=== PATIENT | female | born 1990 | race Caucasian/White ===

== ENCOUNTER 2017-04-23 19:39 | Emergency (ER) | payer MEDICAID ==
[2017-04-23 20:18] VITALS: RESP 18; TEMP 99.7; O2SAT 100; BMI 30.7
[2017-04-23] MEDS ORDERED: Amoxicillin-Clav 875-125 mg Tab PO STA (20:22)
--- NOTE | 2017-04-23 20:28 | ED PDOC ---
Arrival/HPI <Nathan Chirinos - Last Filed: 04/23/17 21:40> <Casa Gregg - Last Filed: 04/23/17 22:19> - General Chief Complaint: ENT Problem Time Seen by Provider: 04/23/17 19:58 - History of Present Illness Narrative History of Present Illness (Text): 04/23/17 20:25 26yo F w/ a PMhx of GERD is coming to the hospital with a 3d history of sore throat, trouble swallowing food, and body aches. States she frequently gets swollen tonsils and this feels just like that. Admits to a fever at home which she took motrin for, which helped her fever come down. Denies all other symptoms ; KRISHNAN, CP, SOB, abdominal pain, N/V/D, dysuria/freq/urg, or lower extremity pain/ swelling, other sick contacts, recent travel. (Nathan Chirinos) Past Medical History - Provider Review Nursing Documentation Reviewed: Yes - Travel History Have you recently traveled outside [place] w/in the past 3 mons?: No - Infectious Disease Hx of Infectious Diseases: None - Tetanus Immunization Tetanus Immunization: Unknown - Neurological Hx Migraine: Yes - Gastrointestinal Hx Gastroesophageal Reflux: Yes - Psychiatric Hx Substance Use: No - Past Surgical History Past Surgical History: No Previous - Surgical History Other/Comment: oral surgery - Anesthesia Hx Anesthesia: Yes Hx Anesthesia Reactions: No Hx Malignant Hyperthermia: No - Suicidal Assessment Feels Threatened In Home Enviroment: No <Nathan Chirinos - Last Filed: 04/23/17 21:40> Family/Social History - Physician Review Nursing Documentation Reviewed: Yes Family/Social History: No Known Family HX Smoking Status: Never Smoked Hx Alcohol Use: Yes Frequency of alcohol use: Socially Hx Substance Use: No Hx Substance Use Treatment: No <Nathan Chirinos - Last Filed: 04/23/17 21:40> Allergies/Home Meds <Nathan Chirinos - Last Filed: 04/23/17 21:40> <Casa Gregg - Last Filed: 04/23/17 22:19> Allergies/Adverse Reactions: Allergies No Known Allergies Allergy (Verified 02/01/15 11:52) Home Medications: Home Meds Medication Instructions Recorded Confirmed Naproxen [Naprosyn] 500 mg PO BID PRN 02/01/15 04/23/17 Ranitidine HCl [Zantac 150] 150 mg PO DAILY 02/01/15 04/23/17 Review of Systems - Review of Systems Constitutional: absent: Fatigue, Weight Change Eyes: absent: Vision Changes, Photophobia ENT: absent: Hearing Changes, Tinnitus Respiratory: absent: SOB, Cough, Sputum Cardiovascular: absent: Chest Pain Gastrointestinal: absent: Abdominal Pain Genitourinary Female: absent: Dysuria, Frequency Musculoskeletal: Arthralgias. absent: Back Pain, Neck Pain Skin: absent: Rash Neurological: absent: Headache, Dizziness Endocrine: absent: Diaphoresis Hemo/Lymphatic: Adenopathy. absent: Easy Bleeding Psychiatric: absent: Anxiety, Depression <Nathan Chirinos - Last Filed: 04/23/17 21:40> Physical Exam Temperature: Afebrile Blood Pressure: Normal Pulse: Regular Respiratory Rate: Normal Appearance: Positive for: Well-Appearing, Non-Toxic Pain Distress: None Mental Status: Positive for: Alert and Oriented X 3 - Systems Exam Head: Present: Atraumatic Pupils: Present: PERRL Extroacular Muscles: Present: EOMI Ears: Present: Normal Mouth: Present: Moist Mucous Membranes Pharnyx: Present: ERYTHEMA, EXUDATE, TONSILS ENLARGED. No: Peritonsilar Swelling, Uvular Deviation, Muffled/Hoarse Voice, Strider, Soft Palate/Uvular Edema Neck: Present: Normal Range of Motion, Lymphadenopathy. No: Meningeal Signs, MIDLINE TENDERNESS, Paraspinal Tenderness, JVD, Bruit, Trachea Midline Respiratory/Chest: Present: Clear to Auscultation, Good Air Exchange. No: Respiratory Distress, Accessory Muscle Use Cardiovascular: Present: Regular Rate and Rhythm, Normal S1, S2. No: Murmurs Abdomen: Present: Tenderness, Distention Back: No: CVA Tenderness Upper Extremity: Present: Normal Inspection. No: Cyanosis, Edema Lower Extremity: Present: Normal Inspection. No: Edema, CALF TENDERNESS Neurological: Present: GCS=15, CN II-XII Intact Skin: Present: Warm Psychiatric: Present: Alert, Oriented x 3, Normal Insight <Nathan Chirinos - Last Filed: 04/23/17 21:40> Medical Decision Making <Nathan Chirinos - Last Filed: 04/23/17 21:40> <Casa Gregg - Last Filed: 04/23/17 22:19> ED Course and Treatment: 04/23/17 20:28 Will order rapid strep and flu Will give Augmentin, steroid, and Motrin dispo and reasess 04/23/17 20:52 The patient is stable for discharge Augmentin was sent to her Pharmacy at [facility] in The patient agreed with discharge was told to return to the ER if she is unable to tolerate PO, has trouble breathing/shortness of breath, or her uvula starts to swell Rapid Strep was + 04/23/17 21:26 (Nathan Chirinos) In agreement with resident note which contains more details about the patient. Patient was seen and evaluated with resident. Came up with plan and treatment together. Patient is a 26 year old female who presents to the emergency department complaining of sore throat and difficulty swallowing. Rapid Strep positive. Patient is stable for discharge home. Given prescription for augmentin. (Casa Gregg) - Lab Interpretations Lab Results: Lab Results 04/23/17 20:50: Influenza Typ A,B (EIA) Negative for flu a/b, Grp A Beta Strep Ag Positive H - Medication Orders Current Medication Orders: Discontinued Medications Amoxicillin/Clavulanate Potassium (Augmentin 875 Mg-125 Mg Tab) 1 tab PO STAT STA PRN Reason: Protocol Stop: 04/23/17 20:23 Last Admin: 04/23/17 20:38 Dose: 1 tab Dexamethasone (Decadron Inj) 10 mg IM STAT STA Stop: 04/23/17 20:25 Last Admin: 04/23/17 21:22 Dose: 10 mg Ibuprofen (Motrin Tab) 600 mg PO STAT STA Stop: 04/23/17 20:26 Last Admin: 04/23/17 21:22 Dose: 600 mg <Nathan Chirinos - Last Filed: 04/23/17 21:40> - PA / DIRECTOR OF PEOPLE / Resident Statement / has reviewed & agrees with the documentation as recorded. FELICITY has examined the patient and agrees with the treatment plan. <Casa Gregg - Last Filed: 04/23/17 22:19> - Scribe Statement Xenia Tapia Provider Scribe Attestation: All medical record entries made by the Scribe were at my direction and personally dictated by me. I have reviewed the chart and agree that the record accurately reflects my personal performance of the history, physical exam, medical decision making, and the department course for this patient. I have also personally directed, reviewed, and agree with the discharge instructions and disposition. (Casa Gregg) Disposition/Present on Arrival - Present on Arrival Any Indicators Present on Arrival: No History of DVT/PE: No History of Uncontrolled Diabetes: No Urinary Catheter: No History of Decub. Ulcer: No History Surgical Site Infection Following: None - Disposition Have Diagnosis and Disposition been Completed?: Yes Disposition Time: 21:23 Patient Plan: Discharge <Nathan Chirinos - Last Filed: 04/23/17 21:40> <Casa Gregg - Last Filed: 04/23/17 22:19> - Disposition Diagnosis: Tonsillitis Disposition: HOME/ ROUTINE Condition: FAIR Discharge Instructions (ExitCare): Tonsillitis (ED) Prescriptions: Amoxicillin/Clavulanate [Augmentin 875 MG-125 MG] 1 tab PO BID #20 tab Referrals: Brigido Macias MD [Primary Care Provider] - Follow up with primary
[2017-04-23 21:22] LABS: INFLUENZA A B NEGATIVE FOR FLU A/B (NEGATIVE)
[2017-04-23 22:08] VITALS: BP 120/67; PULSE 80
== END 2017-04-23 22:09 | disposition home or self-care (01) ==
LOC: ED 19:39
DX: J03.90 Acute tonsillitis, unspecified (principal)
CPT/HCPCS: 87430; 87804; 96372; 99283; J1100